=== PATIENT | female | born 1965 | race Caucasian/White ===

== ENCOUNTER 2017-03-02 08:04 | Day surgery (SDC) | payer OTHER ==
--- NOTE | 2017-03-05 10:17 | OR ---
ADMIT: 03/02/2017 RM/LOC: [facility] MR#: [id number] [address] [address] JENNIFER BOYD [id number] [address] Operative/Delivery Room Report SEX: F AGE: 51 : 1965 SURGERY DATE: 03/02/2017 SURGEON: Moose Lemus MD PROCEDURE: Lumbar epidural blood patch. PREOPERATIVE DIAGNOSIS: Post dural puncture headache. POSTOPERATIVE DIAGNOSIS: Post dural puncture headache. HISTORY: Jennifer is a 51-year-old patient who has chronic headaches. I see her in the pain clinic. Last Saturday I implanted an intrathecal drug infusion system (pain pump) to give her better pain control. she reported symptoms consistent with a spinal headache. She has pushed IV fluids and used caffeinated beverages but in spite of that, her positional headache has persisted. She is here at [facility] today for an epidural blood patch. I had Jennifer check into short-stay surgery. She was given 2 L of lactated Ringer's b.i.d. I discussed the epidural blood patch procedure with Jennifer and her in the preoperative holding area. Her questions were answered. A consent was signed. DESCRIPTION OF PROCEDURE: The patient was taken to the Radiology suite, fluoroscopy suite and placed in the prone position on the fluoroscopy table. Her back was prepped with Betadine and a sterile drape was applied. 1% lidocaine was infiltrated into the skin overlying the L3-4 lumbar interspace. An 18-gauge Tuohy epidural needle was advanced under fluoroscopic guidance until the tip entered the epidural space with loss of resistance to saline through the L3-4 interlaminar window, just to the right of midline. No paresthesia or bleeding was noted. The patient's left antecubital fossa was then prepped with Betadine and alcohol. An 18-gauge needle was used to ADMIT: 03/02/2017 RM/LOC: [facility] MR#: [id number] [facility] [address] [id number] JENNIFER BOYD [address] [facility] [address] [place] [address] Operative/Delivery Room Report SEX: F AGE: 51 : 1965 withdraw 20 mL of fresh whole blood from the left antecubital vein. 18 mL of the blood was then injected through the epidural needle and the epidural needle was withdrawn. Jennifer tolerated the procedure well. She is going to be discharged home. She may continue her Percocet as needed for headache pain. I instructed her to rest in a reclined position this evening and avoid any coughing as much as possible or heavy lifting. I also recommended that she not bend or strain excessively. She may resume normal activities tomorrow. She will follow up for her previously scheduled wound check in the office next week as planned. Moose Lemus MD/ ebony JOB #: [id number] CC: Jed Lemus, Attending Physician Adis Basilio, Family Physician . Pain Clinic
== END 2017-03-02 16:05 | disposition home or self-care (01) ==
LOC: SSS 08:04
PROC: 3E0S3GC Introduction of Other Therapeutic Substance into Epidural Space, Percutaneous Approach (ICD-10-PCS; principal; 2017-03-02)
DX: G97.1 Other reaction to spinal and lumbar puncture (principal); Z98.890 Other specified postprocedural states